=== PATIENT | male | born 1950 | race Hispanic/Latino ===

== ENCOUNTER → 2023-10-07 | Outpatient (CLI) | payer OTHER | END | disposition home or self-care (01) | LOC: RAH 13:19 | PROVIDERS: ATTEND Chiropractor | DX: I34.81 Nonrheumatic mitral (valve) annulus calcification (principal); I25.9 Chronic ischemic heart disease, unspecified; I51.89 Other ill-defined heart diseases; I51.7 Cardiomegaly; Z95.3 Presence of xenogenic heart valve | CPT/HCPCS: 93306 ==